=== PATIENT | male | born 1985 | race Caucasian/White ===

== ENCOUNTER 2019-06-14 11:01 | Emergency (ER) | payer MEDICAID ==
[~2019-06-14] VITALS: Ht 167.6 cm; Wt 65.0 kg
[2019-06-14 11:07] VITALS: Ht 167.6 cm; Wt 65.0 kg
--- NOTE | 2019-06-14 12:19 | ERD ---
ER Documentation Chief Complaint Chief Complaint HTNand fatigue x 1 week with nausea. Denies CP or SOB HPI This is a 34-year-old male who presents for evaluation of hypertension. The patient states that sometimes in the morning, he feels a mild headache, and nausea, is been going on for about the last week. He denies any confusion, no visual changes, no speech changes, and no weakness. He has not had any chest pain or shortness of breath. Otherwise he has been doing well ROS All systems reviewed and are negative except as per history of present illness. Allergies Allergies: Coded Allergies: No Known Allergy (Unverified , 06/14/19) PMhx/Soc History of Surgery: No Hx Neurological Disorder: No Hx Respiratory Disorders: No Hx Cardiac Disorders: Yes (HTN) Hx Psychiatric Problems: Yes (ANXIETY) Hx Miscellaneous Medical Probl: No Hx Alcohol Use: Yes Hx Substance Use: No Hx Tobacco Use: Yes Smoking Status: Current every day smoker Physical Exam Vitals Vital Signs Date Temp Pulse Resp B/P (MAP) Pulse Ox O2 O2 Flow FiO2 Time Delivery Rate 06/14/19 98.2 73 18 143/91 99 11:07 (108) Physical Exam Const: No acute distress Head: Atraumatic Eyes: Normal Conjunctiva ENT: Normal External Ears, Nose and Mouth. Neck: Full range of motion. No meningismus. Resp: Clear to auscultation bilaterally Cardio: Regular rate and rhythm, no murmurs Abd: Soft, non tender, non distended. Normal bowel sounds Skin: No petechiae or rashes Back: No midline or flank tenderness Ext: No cyanosis, or edema Neur: Awake and alert, cranial nerves II 12 intact, no cerebellar ataxia Psych: Normal Mood and Affect Result Diagram: 06/14/19 1120 06/14/19 1120 Results 24 hrs Laboratory Tests Test 06/14/19 11:20 White Blood Count 8.3 10^3/ul Red Blood Count 5.89 10^6/ul Hemoglobin 17.3 g/dl Hematocrit 49.4 % Mean Corpuscular Volume 83.9 fl Mean Corpuscular Hemoglobin 29.4 pg Mean Corpuscular Hemoglobin Concent 35.0 g/dl Red Cell Distribution Width 12.4 % Platelet Count 261 10^3/UL Mean Platelet Volume 8.6 fl Immature Granulocytes % 0.200 % Neutrophils % 56.9 % Lymphocytes % 34.7 % Monocytes % 6.0 % Eosinophils % 1.7 % Basophils % 0.5 % Nucleated Red Blood Cells % 0.0 /100WBC Immature Granulocytes # 0.020 10^3/ul Neutrophils # 4.7 10^3/ul Lymphocytes # 2.9 10^3/ul Monocytes # 0.5 10^3/ul Eosinophils # 0.1 10^3/ul Basophils # 0.0 10^3/ul Nucleated Red Blood Cells # 0.0 10^3/ul Sodium Level 138 mmol/L Potassium Level 4.4 mmol/L Chloride Level 103 mmol/L Carbon Dioxide Level 28 mmol/L Anion Gap 7 Blood Urea Nitrogen 14 mg/dl Creatinine 0.82 mg/dl Est Glomerular Filtrat Rate mL/min > 60 mL/min Glucose Level 121 mg/dl Calcium Level 9.7 mg/dl Procedures/MDM Pleasant 34-year-old male who presents for essentially asymptomatic hypertension. Has no cardiopulmonary symptoms, no evidence of encephalopathy, he has normal renal function, he has experienced some very mild headaches over the last week, given the short duration, I have a low suspicion for an intracranial mass, however advised the patient to follow-up with his primary care doctor if symptoms continue. Otherwise I felt patient is stable for outpatient follow-up. In the meantime, prior prescription for Norvasc, at [facility], [place] the patient was in no distress. Departure Diagnosis: Primary Impression: Hypertension Hypertension type: essential hypertension Qualified Codes: I10 - Essential (primary) hypertension Condition: Good VARUN LEVIN MD Jun 14, 2019 12:19
[2019-06-14] MEDS ORDERED: AMLO5TAB4 PO (12:26)
[2019-06-14 12:33] VITALS: BP 127/83; PULSE 87; RESP 16
== END 2019-06-14 12:35 | disposition home or self-care (01) ==
LOC: E/R 11:01
DX: I10 Essential (primary) hypertension (principal); F17.210 Nicotine dependence, cigarettes, uncomplicated
CPT/HCPCS: 36415; 80048; 85025; 93005; Z7502; Z7610